=== PATIENT | male | born 1940 | race Caucasian/White ===

== ENCOUNTER → 2017-12-08 | Outpatient (CLI) | payer MEDICARE ==
[~2017-12-08] MED LIST: AEC81 PO; CETI10TA57 PO; CINN500C PO; DILT90CA PO; FURO20TA4 PO; HYDR-4064 PO; INSLAN SQ; METF500T6 PO; RAMI10CA23 PO
== END | disposition home or self-care (01) ==
LOC: RAH 09:19
PROVIDERS: ATTEND Internal Medicine
DX: R05 Cough (principal)
CPT/HCPCS: 71046